=== PATIENT | female | born 1985 | race African-American/Black ===

== ENCOUNTER 2017-06-25 19:38 | Emergency (ER) | payer MEDICAID ==
[~2017-06-25] VITALS: Ht 154.9 cm; Wt 87.5 kg
[~2017-06-25 19:38] MED LIST: AMOX875T PO; CORTIS10A RIGHT EAR; OFLO.3%A RIGHT EAR; PERM5CRE TOP
[2017-06-25 19:39] VITALS: BP 134/82; PULSE 96; RESP 18; TEMP 101; O2SAT 96
--- NOTE | 2017-06-25 20:41 | PD ---
HPI Chief Complaint: ENT Complaint Time Seen by Provider: 20:38 Travel History International Travel<30 days: No Contact w/Intl Traveler<30days: No Traveled to known affect area: No History of Present Illness HPI 31-year-old female presents to the ED for evaluation of 2 day history of sore throat, chills. Onset gradual. Patient denies headache, ear pain, sinus congestion, rhinorrhea, difficulty swallowing her own secretions, cough, shortness of breath, sick contacts. Patient states symptoms are similar to previous episodes of strep throat. No treatment attempted at home. PFSH Past Medical History Medical History: Denies Significant Hx Hx Anticoagulant Therapy: No Cardiovascular Problems: No Chemotherapy: No Cerebrovascular Accident: No Diabetes: No Diminished Hearing: No Respiratory: No Influenza Vaccination: No ?: Not LMP: IUD : 3 Para: 0 : 2 Dilation and Curettage (D&C): Yes Past Surgical History Section: Yes Gynecologic Surgery: Yes (IUD ) Hysterectomy: No Social History Alcohol Use: No Tobacco Use: No Substance Use: No Allergies-Medications (Allergen,Severity, Reaction): Coded Allergies: Phenergan (Verified Adverse Reaction, Intermediate, AGITATION, 10/13/15) Reported Meds & Prescriptions Reported Meds & Active Scripts Active Magic Mouthwash Adult Liq (Multi-Ingredient Mouthwash/Gargle) 120 Ml Susp 5 Ml SWISH-SWAL ACHS Each 5mL contains: Nystatin 200,000units, Diphenhydramine 4.25mg, Viscous Lidocaine 10mg, Marie syrup 0.8 mL Review of Systems Except as stated in HPI: all other systems reviewed are Neg Physical Exam Narrative GENERAL: Well-nourished, well-developed nontoxic-appearing AA female in no acute distress. SKIN: Warm and dry. HEAD: Normocephalic. Atraumatic. EYES: No scleral icterus. No injection or drainage. PERRLA. EOMI. ENT: Pearly acevedo tympanic membranes bilaterally. Nasal mucosa is moist. 2+ tonsils bilaterally, erythematous, edematous, lance exudates. Uvula midline. Airway patent. NECK: Supple, trachea midline. No JVD. Tender bilateral submandibular lymphadenopathy. CARDIOVASCULAR: Regular rate and rhythm without murmurs, gallops, or rubs. 2+ DP and radial pulses bilaterally. RESPIRATORY: Breath sounds clear and equal bilaterally. No accessory muscle use. GASTROINTESTINAL: Abdomen soft, non-tender, nondistended. MUSCULOSKELETAL: No cyanosis, or edema. BACK: Nontender without obvious deformity. No CVA tenderness. Data Data Last Documented VS Vital Signs Date Time Temp Pulse Resp B/P Pulse Ox O2 Delivery O2 Flow Rate FiO2 06/25/17 19:39 101.0 96 18 134/82 96 Room Air Orders Group A Rapid Strep Screen (06/25/17 20:28) Acetaminophen (Tylenol) (06/25/17 20:45) Iv Access Insert/Monitor (06/25/17 20:36) Dexamethasone Inj (Decadron Inj) (06/25/17 20:45) Sodium Chloride 0.9% Flush (Ns Flush) (06/25/17 20:45) Sodium Chlor 0.9% 1000 Ml Inj (Ns 1000 M (06/25/17 20:45) Complete Blood Count With Diff (06/25/17 20:41) Penicil G Sanchez Inj (Bicillin L-A Inj) (06/25/17 21:00) Strep Culture (Group A) (06/25/17 20:30) Labs Laboratory Tests Test 06/25/17 21:00 White Blood Count 13.8 TH/MM3 Red Blood Count 4.59 MIL/MM3 Hemoglobin 13.9 GM/DL Hematocrit 39.6 % Mean Corpuscular Volume 86.3 FL Mean Corpuscular Hemoglobin 30.2 PG Mean Corpuscular Hemoglobin 35.0 % Concent Red Cell Distribution Width 12.5 % Platelet Count 239 TH/MM3 Mean Platelet Volume 9.4 FL Neutrophils (%) (Auto) 72.4 % Lymphocytes (%) (Auto) 16.1 % Monocytes (%) (Auto) 10.9 % Eosinophils (%) (Auto) 0.1 % Basophils (%) (Auto) 0.5 % Neutrophils # (Auto) 10.0 TH/MM3 Lymphocytes # (Auto) 2.2 TH/MM3 Monocytes # (Auto) 1.5 TH/MM3 Eosinophils # (Auto) 0.0 TH/MM3 Basophils # (Auto) 0.1 TH/MM3 CBC Comment DIFF FINAL Differential Comment MDM Medical Decision Making Medical Screen Exam Complete: Yes Emergency Medical Condition: Yes Differential Diagnosis Pharyngitis versus strep pharyngitis versus peritonsillar abscess versus deep space neck infection versus other Narrative Course 31-year-old female presents to the ED for evaluation of 2 day history of sore throat, chills. Onset gradual. Patient denies headache, ear pain, sinus congestion, rhinorrhea, difficulty swallowing her own secretions, cough, shortness of breath, sick contacts. Patient states symptoms are similar to previous episodes of strep throat. No treatment attempted at home. Patient is febrile, 100.1 on presentation. Physical exam reveals a non-toxic AA female in NAD. Tonsils are 2+ bilaterally and frankly exudative. Uvula midline. Airway patent. Tender submandibular lymphadenopathy bilaterally. IV was established. Patient was administered 650 mg acetaminophen by mouth, 1 L normal saline IV, IV dexamethasone, 1.2 million units penicillin G IM. CBC shows leukocytosis of 13.8. On recheck the patient reports improvement of her symptoms. She is prescribed Magic mouthwash. She is instructed to rest, hydrate , take medicine as prescribed, dispose of her toothbrush, return to the ED for worsening symptoms, follow-up with primary care. She indicated understanding of instructions and is agreeable to the care plan. She is stable and discharged home.- Diagnosis Primary Impression: Exudative pharyngitis Referrals: Primary Care Physician Patient Instructions: General Instructions, Strep Throat (ED) Additional Instructions: Rest, hydrate. Push fluids such as sports drinks, Pedialyte, popsicles, clear broth. Alternating Motrin and Tylenol every 4-6 hours as needed for continued fever. Magic mouthwash 4-6 times a day as needed for sore throat. Increase handwashing . Replace toothbrush at the end of this illness. Follow-up with the primary care provider this week. Return to the ED for any urgent or emergent medical condition. Med/Other Pt SpecificInfo: Prescription(s) given Scripts Enkdbedh-[id number]-Xbvdxzjmz Liq (Magic Mouthwash Adult Liq)120 Ml Susp5 Ml SWISH-SWAL ACHS #120 ML Ref 0 Each 5mL contains: Nystatin 200,000units, Diphenhydramine 4.25mg, Viscous Lidocaine 10mg, Marie syrup 0.8 mL Prov:Nereida Lamb MD 06/25/17 Disposition: 01 DISCHARGE HOME Condition: Stable Genesis Snider Jun 25, 2017 20:41 Genesis Snider Jun 25, 2017 20:41 Genesis Snider Jun 25, 2017 20:41
[2017-06-25] MEDS ORDERED: SODIUM CHLORIDE 0.9% FLUSH 10 ML FLUSH IVF PRN (20:45)
[2017-06-25] MEDS ORDERED: PENICILLIN G BENZATHINE 1,200,000 UNITS/2 ML SYRINGE IM ONE (20:45)
[2017-06-25] MEDS ORDERED: ACETAMINOPHEN 325 MG TAB PO ONE (20:45)
[2017-06-25] MEDS ORDERED: SODIUM CHLOR 0.9% 1000 ML INJ 1,000 ML IV ONE (20:45)
[2017-06-25] MEDS ORDERED: DEXAMETHASONE SOD PHOS 4 MG/ML VIAL IV ONE (20:45)
[2017-06-25] MEDS ORDERED: PENICIL G BENZ INJ 600,000 UNITS/ML SYR IM ONE (21:00)
[2017-06-25] MEDS ORDERED: MAGICADU2 SWISH-SWAL (21:09)
[2017-06-25 21:16] LABS: BASOPHIL # 0.1 TH/MM3 (0-0.2); BASOPHIL % 0.5 % (0.0-2.0); EOSINOPHIL % 0.1 % (0.0-4.0); HEMATOCRIT 39.6 % (35.0-46.0); HEMO FLAGS DIFF FINAL; LYMPH % 16.1 % (9.0-44.0); LYMPHOCYTE # 2.2 TH/MM3 (1.0-4.8); MEAN CELL VOLUME 86.3 FL (80.0-100.0); MEAN CORPUSCULAR HEMOGLOBIN 30.2 PG (27.0-34.0); MONO % 10.9 % (0.0-8.0); NEUT % 72.4 % (16.0-70.0); PLATELET COUNT 239 TH/MM3 (150-450); RED BLOOD COUNT 4.59 MIL/MM3 (4.00-5.30); RED CELL DISTRIBUTION WIDTH 12.5 % (11.6-17.2); WHITE BLOOD COUNT 13.8 TH/MM3 (4.0-11.0)
== END 2017-06-25 22:10 | disposition home or self-care (01) ==
LOC: NEPE 19:38
DX: J02.9 Acute pharyngitis, unspecified (principal)
CPT/HCPCS: 85025; 87081; 87880; 96372; 96374; 99284; J0561; J1100; J7030

== ENCOUNTER 2018-01-26 22:22 | Emergency (ER) | payer MEDICAID ==
[~2018-01-26] VITALS: Ht 154.9 cm; Wt 81.5 kg
[~2018-01-26 22:22] MED LIST changes: -AMOX875T PO; -CORTIS10A RIGHT EAR; +MAGICADU2 SWISH-SWAL; -OFLO.3%A RIGHT EAR; -PERM5CRE TOP
[2018-01-26 22:27] VITALS: BP 120/60; PULSE 63; RESP 18; TEMP 98.2; O2SAT 97
[2018-01-26] MEDS ORDERED: CLEO300C2 PO (23:57)
[2018-01-26] MEDS ORDERED: NORC5TAB PO (23:57)
[2018-01-27] MEDS ORDERED: CLINDAMYCIN 150 MG CAP PO ONE
[2018-01-27] MEDS ORDERED: DEXAMETHASONE 4 MG TAB PO ONE
[2018-01-27] MEDS ORDERED: ACETAMINOPHEN/HYDROcodone 325 MG/5 MG TAB PO ONE
--- NOTE | 2018-01-27 00:01 | PD ---
HPI Chief Complaint: Oral / Dental Pain or Problem Time Seen by Provider: 23:53 Travel History International Travel<30 days: No Contact w/Intl Traveler<30days: No Traveled to known affect area: No History of Present Illness HPI 32-year-old black female presents emergency department complains of left facial swelling and complaints of dental pain. She has had mild discomfort in her left upper maxilla over the last day or so but today developed significant swelling and pain. She denies any fever chills. No difficulty swallowing. Symptoms are moderate. No alleviating factors. No exacerbating factors. PFSH Past Medical History Medical History: Denies Significant Hx Hx Anticoagulant Therapy: No Cardiovascular Problems: No Chemotherapy: No Cerebrovascular Accident: No Diabetes: No Diminished Hearing: No Respiratory: No ?: Not : 3 Para: 0 : 2 Dilation and Curettage (D&C): Yes Past Surgical History Section: Yes Gynecologic Surgery: Yes (IUD ) Hysterectomy: No Social History Alcohol Use: No Tobacco Use: No Substance Use: No Allergies-Medications (Allergen,Severity, Reaction): Coded Allergies: promethazine (Unverified Adverse Reaction, Intermediate, AGITATION, 01/26/18 ) Reported Meds & Prescriptions Reported Meds & Active Scripts Active [place] (Hydrocodone-Acetaminophen) 5 Mg-325 Mg Tab 1 Tab PO Q8HR PRN Cleocin (Clindamycin HCl) 300 Mg Cap 300 Mg PO Q6H 10 Days Magic Mouthwash Adult Liq (Multi-Ingredient Mouthwash/Gargle) 120 Ml Susp 5 Ml SWISH-SWAL ACHS Each 5mL contains: Nystatin 200,000units, Diphenhydramine 4.25mg, Viscous Lidocaine 10mg, Marie syrup 0.8 mL Review of Systems General / Constitutional: No: Fever Eyes: No: Visual changes HENT: Positive: Dental Difficulties, No: Headaches, Sore Throat, Ear Discharge , Earache Cardiovascular: No: Chest Pain or Discomfort Respiratory: No: Shortness of Breath Gastrointestinal: No: Abdominal Pain Genitourinary: No: Dysuria Musculoskeletal: No: Pain Skin: No Rash Neurologic: No: Weakness Psychiatric: No: Depression Endocrine: No: Polydipsia Hematologic/Lymphatic: No: Easy Bruising Physical Exam Narrative GENERAL: Well-developed, well-nourished in no acute distress. Nontoxic appearing. HEAD: Mild swelling of the left maxilla. EYES: Pupils equal round and reactive. Extraocular motions intact. No scleral icterus. No injection or drainage. ENT: TMs clear without erythema. The external auditory canals clear. Nose: clear . Posterior pharynx is pink and moist. No tonsillar edema or exudate. Uvula midline. Airway patent. Patient has a dental caries and tooth #15. NECK: Trachea midline.Supple, nontender, moves head freely. No central bony tenderness or spasm. CARDIOVASCULAR: Regular rate and rhythm without murmurs, gallops, or rubs. RESPIRATORY: Clear to auscultation. Breath sounds equal bilaterally. No wheezes , rales, or rhonchi. GASTROINTESTINAL: Abdomen soft, non-tender, nondistended. No hepato-splenomegaly , or palpable masses. No guarding. EXTREMITIES: No clubbing, cyanosis, or edema. No joint tenderness, effusion, or edema noted. BACK: Nontender without deformity or crepitance. No flank tenderness. Patient has some Data Data Last Documented VS Vital Signs Date Time Temp Pulse Resp B/P (MAP) Pulse Ox O2 Delivery O2 Flow Rate FiO2 01/26/18 22:27 98.2 63 18 120/60 (80) 97 Orders Orders Clindamycin (Cleocin) (01/27/18 00:00) Dexamethasone (Decadron) (01/27/18 00:00) Acetamin-Hydrocod 325-5 Mg (Greeley 5-325 (01/27/18 00:00) MDM Medical Decision Making Medical Screen Exam Complete: Yes Emergency Medical Condition: Yes Medical Record Reviewed: Yes Differential Diagnosis MDM: Moderate Differential diagnoses: Dental abscess, dental caries, osteitis, cellulitis Narrative Course Patient is given [place]ley 5 mg p.o., clindamycin 300 mg p.o., and Decadron 8 mg p.o. This is dental abscess with facial cellulitis Diagnosis Primary Impression: Dental abscess with facial cellulitis Patient Instructions: Narcotic given in the ED, General Instructions Departure Forms: Tests/Procedures, Work Release Special Instructions: No work 2 days. Additional Instructions: Rest. Saltwater gargles. Baltic oil on cotton balls. 3 Advil every 6 hours. Clindamycin and Greeley. follow-up with a dentist as soon as possible. And return to the ER if any problems. Med/Other Pt SpecificInfo: Prescription(s) given Scripts Hydrocodone-Acetaminophen (Greeley) 5 Mg-325 Mg Tab 1 TAB PO Q8HR Y for PAIN, #10 TAB 0 Refills Prov: Becky Stovall MD 01/26/18 Clindamycin (Cleocin) 300 Mg Cap 300 MG PO Q6H for Infection for 10 Days, #40 CAP 0 Refills Prov: Becky Stovall MD 01/26/18 Disposition: 01 DISCHARGE HOME Condition: Stable Denys Guerrero Jan 27, 2018 00:01
[2018-01-29 22:34] VITALS: BP 142/77; PULSE 78; RESP 18; O2SAT 98
== END 2018-01-27 00:19 | disposition home or self-care (01) ==
LOC: NEPD 22:22
DX: L03.211 Cellulitis of face (principal); K04.7 Periapical abscess without sinus; Z88.8 Allergy status to other drugs, medicaments and biological substances
CPT/HCPCS: 99283; J8540